=== PATIENT | male | born 1985 | race Caucasian/White ===

== ENCOUNTER 2016-11-21 18:44 | Emergency (ER) | payer OTHER ==
[2016-11-21 18:50] VITALS: TEMP 98.2
--- NOTE | 2016-11-21 19:13 | CPEKG ---
Heart Rate: 86 RR Interval: 698 P-R Interval: 160 QRSD Interval: 88 QT Interval: 368 QTC Interval: 440 P Levan: 42 QRS Levan: 80 T Wave Levan: 57 EKG Severity - NORMAL ECG - EKG Impression: SINUS RHYTHM Electronically Signed By: Jaime Jang 21-Nov-2016 22:08:12
[2016-11-21] MEDS ORDERED: DIAZEPAM 5 MG TAB PO ONE ×2 (19:17→19:30)
--- NOTE | 2016-11-21 19:54 | EDPHY ---
H & P Time Seen by Provider: 11/21/16 18:58 HPI/ROS: HPI Numb all over. 31-year-old male by private vehicle with girlfriend. 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 He reports that he was out at a bar last night. He was drinking some alcohol and he did some cocaine. He reports that he went to sleep uneventfully. He reports that about an hour prior to arrival he started feeling very anxious, sweaty, shaking all over, complaining of numbness and tingling in his extremities and all over his body. He also has some associated shortness of breath. No other complaints. ROS: Constitutional: No fever, no chills. As above. Eyes: No discharge. No changes in vision. ENT: No sore throat. No nasal congestion or rhinorrhea. Respiratory: No cough. As above. Cardiac: No chest pain, no palpitations. Gastrointestinal: No abdominal pain, no vomiting, no diarrhea. Genitourinary: No hematuria. No dysuria or increased frequency with urination. Musculoskeletal: No back pain. No neck pain. No myalgias or arthralgias. Skin: No rashes. Neurological: No headache. No focal weakness or altered sensation. As above. Past medical history: No significant past medical history. Social history: Nonsmoker. Here with his girlfriend. Social alcohol and recreational drug use. Physical Exam: General Appearance: Alert, anxious. This patient is responding to questions appropriately and in full sentences. This patient appears well-hydrated and well-nourished. Eyes: Pupils equal and round no pallor or injection. No lid edema, erythema or injection. ENT, Mouth: Mucous membranes are moist. The pharyngeal tissues are unremarkable. No edema or swelling. No asymmetry suggestive of abscess. No erythema or exudates. No tongue lacerations or abrasions. No stridor on auscultation of his neck. Respiratory: There are no retractions, lungs are clear to auscultation with good air movement bilaterally. Cardiovascular: Regular rate and rhythm. No murmur. Gastrointestinal: Abdomen is soft and nontender, no masses, bowel sounds normal. No focal tenderness at McBurney's point. No Schaeffer sign. Neurological: Motor sensory function is grossly intact. Cranial nerves are normal. Gait is normal. Skin: Warm and dry, no rashes. Musculoskeletal: Neck is supple and nontender. Extremities are symmetrical. All joints range without pain or impingement. Psychiatric: No agitation. No depression. Database: EKG: EKG time is 7:11 p.m.; EKG shows a narrow complex normal sinus rhythm with a ventricular rate of 86. The MS, QRS, QT intervals are within normal limits. There are no ST-T wave changes indicative of ischemic or injury pattern. No evidence of right heart strain. No evidence of WPW, Brugada syndrome, hypertrophic cardiomyopathy. Interpreted by me. Imaging: Procedures: Emergency department course: Vital signs reviewed, patient was tachycardic in triage. Tachycardia had resolved on my exam. Vital signs otherwise unremarkable patient afebrile. Patient will be given 10 mg of oral Valium and then reassessed. His presentation is consistent with an anxiety reaction. 8:30 p.m., patient re-evaluated. He is feeling much better after 10 mg of oral Valium. Vital signs reviewed and are normal. He feels comfortable going home and I feel he is safe for discharge. Follow-up and return to emergency department precautions reviewed with him. All of his questions were answered. He was discharged home in good condition. Differential Diagnosis: The differential diagnosis on this patient includes but is not limited to anxiety reaction, panic attack. Acute coronary syndrome, pulmonary embolism, TIA, CVA, acute sympathomimetic toxidrome unlikely. This represents a partial list of diagnoses considered. These considerations are based on history, physical exam, past history, reassessment and diagnostic testing. Smoking Status: Current every day smoker Constitutional: Initial Vital Signs Temperature (C) 36.8 C 11/21/16 18:47 Heart Rate 120 H 11/21/16 18:47 Respiratory Rate 20 11/21/16 18:47 Blood Pressure 134/99 H 11/21/16 18:47 O2 Sat (%) 98 11/21/16 18:47 O2 Delivery Mode Room Air Allergies/Adverse Reactions: Penicillins Allergy (Verified 11/21/16 18:47) Home Medications: Medication Instructions Recorded NK [No Known Home Meds] 11/21/16 Medical Decision Making - Data Points Medications Given: Discontinued Medications Diazepam (Valium) 5 mg PO EDNOW ONE Stop: 11/21/16 19:18 Last Admin: 11/21/16 19:43 Dose: Not Given Diazepam (Valium) 10 mg PO EDNOW ONE Stop: 11/21/16 19:31 Last Admin: 11/21/16 19:42 Dose: 10 mg Departure - Departure Disposition: Home, Routine, Self-Care Clinical Impression: Anxiety reaction Condition: Good Instructions: Anxiety (ED) Additional Instructions: Read and follow provided instructions. Follow-up with your primary care physician in 1-2 days for re-evaluation and ongoing management of your anxiety as needed. Do not do cocaine or other drugs. Return to the emergency department for worsening symptoms, chest pain, palpitations, difficulty breathing or other serious concerns. Referrals: NONE *PRIMARY CARE P,. [Primary Care Provider] - As per Instructions
[2016-11-21 20:11] VITALS: BP 126/82
[2016-11-21 20:53] VITALS: PULSE 96; RESP 16; O2SAT 14
== END 2016-11-21 20:52 | disposition home or self-care (01) ==
DX: F41.9 Anxiety disorder, unspecified (principal); F17.200 Nicotine dependence, unspecified, uncomplicated

== ENCOUNTER 2018-07-11 22:34 | Emergency (ER) | payer OTHER ==
[2018-07-11 22:39] VITALS: BP 136/85
--- NOTE | 2018-07-11 23:21 | EDPHY ---
General - History Smoking Status: Current every day smoker Time Seen by Provider: 07/11/18 22:50 Narrative: CLINICAL IMPRESSION: Possible foreign body ingestion, throat pain ASSESSMENT/PLAN: 33-year-old male presents to the emergency department after he reports possibly ingesting a small amount of glass that was chipped off of a beer glass. He is complaining of throat pain but tolerating secretions well. He has stable vital signs. No reports of hematemesis, cough, shortness of breath, substernal chest pain, abdominal pain, nausea or vomiting. Patient has decided that he does not want to have x-rays, fiberoptic laryngoscopy or any further evaluation. He prefers to go home and monitor symptoms. He reports this decision is based primarily on cost. I have explained that I cannot rule out foreign body ingestion without x-rays, and we did discuss all potential risks associated with sharp foreign body ingestion including esophageal perforation, perforated small bowel or colon, infection, and bleeding. return precautions discussed in detail. A primary care referral was also given. DIFFERENTIAL DX: Differential includes but not limited to throat pain secondary to esophageal abrasion, and foreign body ingestion. CHIEF COMPLAINT: Throat pain HPI: 33-year-old male presents to the emergency department with complaints of throat pain. Patient reports he was drinking a beer this evening, accidentally knocked the beer cup over, picked up back up and when he took the last drink he noticed that a small chip of glass was missing from the rim of the beer glass. He remembers feeling something sharp when he swallowed. He drinks several glasses of water after finishing his beer. He reports for the last hour he has had some lower throat discomfort and a sensation of tightness. He reports no difficulty handling his saliva. He has not spit vomited or coughed up blood. He reports no substernal chest pain, shortness of breath, abdominal pain nausea or vomiting. Patient reports "I feel stupid for being here, I have been to emergency department before and I am very concerned about the cost of a workup" . Ultimately, patient decided he did not want to be evaluated nor have any diagnostic testing including x-rays. PAST MEDICAL HISTORY: None reported See triage summary and nurse notes for addition applicable history Pertinent Past Surgical History: None reported Family History: Noncontributing Social History: Otherwise healthy REVIEW OF SYSTEMS: A full 10 point review of systems was negative except for those mentioned in HPI. PHYSICAL EXAM: General Appearance: Alert, oriented, appropriate, cooperative, NAD, well hydrated, non-toxic appearing, VSS, tolerating secretions well, no hypoxia. HEENT: [Patient declined exam. MEDICAL DECISION MAKING: Patient was seen independently. Secondary supervising physician at time of evaluation was: Dr Reyes . Diagnosis: Throat pain, possible foreign body ingestion. New, requires workup Summary: See Assessment and Plan for summary of ED visit Patient Progress: Stable at time of discharge. (Martin Dickens) PHYSICIAN DOCUMENTATION: The patient was evaluated and managed by the Physician Event Planner. My co- signature indicates that I have reviewed this chart and I agree with the findings and plan of care as documented. I am the secondary supervising physician. (Nadia Reyes) - Objective Vital Signs: Initial Vital Signs Temperature (C) 36.7 C 07/11/18 22:35 Heart Rate 93 07/11/18 22:35 Respiratory Rate 16 07/11/18 22:35 Blood Pressure 136/85 H 07/11/18 22:35 O2 Sat (%) 96 07/11/18 22:35 O2 Delivery Mode Room Air Allergies/Adverse Reactions: cefaclor [From Ceclor] Allergy (Verified 07/11/18 22:37) Penicillins Allergy (Verified 11/21/16 18:47) Home Medications: Medication Instructions Recorded NK [No Known Home Meds] 11/21/16 Departure - Departure Disposition: Home, Routine, Self-Care Clinical Impression: Pain in throat Condition: Good Instructions: Pharyngitis (ED) Additional Instructions: DISCHARGE INSTRUCTIONS FROM YOUR DOCTOR Thank you for visiting our emergency department today. You were treated by a physician activities assistant today and your case was reviewed with our ED Attending physician. Please keep in mind that discharge from the emergency department does not mean that there is nothing wrong - it simply means that we have not identified an emergency condition that requires further evaluation or treatment in the hospital. You should always plan to follow up with primary care for re- evaluation of your condition in the next 2-3 days. If you have been referred to a specialist, please call as soon as possible (today or tomorrow) to schedule your follow up appointment at the appropriate time. YOU HAVE DECLINED EMERGENCY DEPARTMENT EVALUATION INCLUDING EXAM, FIBEROPTIC LARYNGOSCOPY, AND X-RAYS. PLEASE MONITOR SYMPTOMS CLOSELY AT HOME. AVOID SPICY FOOD, CITRUS FOOD, COFFEE, OR FOODS THAT EXACERBATE ACID REFLUX. PLEASE STAY WELL-HYDRATED. RETURN TO THE EMERGENCY DEPARTMENT IMMEDIATELY FOR INCREASED THROAT PAIN, COUGHING, SPITTING OR VOMITING BLOOD, INABILITY TO SWALLOW YOUR OWN SALIVA, SEVERE SUBSTERNAL CHEST DISCOMFORT OR SHORTNESS OF BREATH, SEVERE ABDOMINAL PAIN NAUSEA OR VOMITING, BLOODY STOOLS, OR ANY OTHER CONCERNS. People present with illnesses and injuries in different ways, and it is always possible that we have missed something. You may always return for re-evaluation if symptoms worsen or if they are not improving or if you develop new/different symptoms. Again, thank you for choosing our emergency department. We hope that you feel better. Referrals: Bethany Orr MD [[facility] [place] Primary Care Provider] - 1-2 days without fail
== END 2018-07-11 23:33 | disposition home or self-care (01) ==
DX: R07.0 Pain in throat (principal)